=== PATIENT | female | born 1945 | race Caucasian/White ===

== ENCOUNTER → 2016-12-30 | Outpatient (CLI) | payer MEDICARE, OTHER ==
[2016-12-30 12:40] LABS: Urine Bilirubin Negative (Negative); Urine Blood Negative /uL (Negative); Urine Color Yellow (Yellow); Urine Glucose Normal (Normal); Urine Ketone Negative (Negative); Urine Nitrite Negative (Negative); Urine Urobilinogen Normal (Negative); Urine pH 5.5 (5.0-8.0)
[2016-12-30 12:53] LABS: INR 1.02 (0.9-1.15); Partial Thromboplastin Time 28.5 sec (22.64-33.71)
[2016-12-30 12:55] LABS: Basophils # (auto) 0 uL; Basophils % (auto) 0.9 % (0.0-2.0); Eosinophils # (auto) 0.1 uL; Eosinophils % (auto) 3.6 % (0.0-7.0); Hematocrit 46.7 % (36.0-46.0); Hemoglobin 15.4 g/dL (12.2-16.2); Lymphocytes # (auto) 1.3 uL; Lymphocytes % (auto) 37.8 % (10.0-50.0); Mean Corpuscular Hgb Conc. 32.9 g/dL (32.0-36.0); Mean Corpuscular Volume 85.2 fL (80.0-100.0); Mean Platelet Volume 12.3 fL (7.4-10.4); Monocytes # (auto) 0.5 uL; Monocytes % (auto) 12.8 % (0.0-12.0); Neutrophils # (auto) 1.6 uL; Neutrophils % (auto) 44.9 % (37.0-80.0); Platelet Count (auto) 118 10^3/uL (140-450); Red Cell Distribution Width 16.5 % (11.6-16.0); SUSPECT VIEW TRANSMISSION; White Blood Cell 3.6 10^3/uL (4.4-10.8)
[2016-12-30 13:34] LABS: Albumin 3.3 g/dL (3.4-5.0); Bilirubin, Total 0.9 mg/dL (0.2-1.0); Calcium 9.9 mg/dL (8.5-10.1); Potassium 4.1 mmol/L (3.5-5.1); Total Protein 8.1 g/dL (6.4-8.2)
[2016-12-30 14:07] LABS: Bilirubin, Direct 0.5 mg/dL (0-0.2)
== END | disposition home or self-care (01) ==
LOC: LAB 09:19
PROVIDERS: ATTEND Internal Medicine Cardiovascular Disease
DX: I10 Essential (primary) hypertension (principal); E78.00 Pure hypercholesterolemia, unspecified; K74.1 Hepatic sclerosis; E11.9 Type 2 diabetes mellitus without complications; E03.9 Hypothyroidism, unspecified; D64.9 Anemia, unspecified; E55.9 Vitamin D deficiency, unspecified; N39.0 Urinary tract infection, site not specified; K74.60 Unspecified cirrhosis of liver; K75.81 Nonalcoholic steatohepatitis (NASH); E66.1 Drug-induced obesity
CPT/HCPCS: 36415; 80048; 80061; 80076; 81003; 82105; 82306; 83036; 84443; 85025; 85610; 85730

== ENCOUNTER → 2017-08-08 | Outpatient (CLI) | payer MEDICARE, OTHER ==
[~2017-08-08] VITALS: Ht 177.8 cm; Wt 158.8 kg
[~2017-08-08] MED LIST: ADENOSINE 133 MG in GIVE UN-DILUTED 0 ML IV ONE; ADENOSINE 90 MG/30 ML INJ IV ONE
[2017-08-08 13:13] LABS: Urine Bilirubin Negative (Negative); Urine Blood Negative /uL (Negative); Urine Color Yellow (Yellow); Urine Glucose Normal (Normal); Urine Ketone Negative (Negative); Urine Nitrite Negative (Negative); Urine Urobilinogen Normal (Negative); Urine pH 6.5 (5.0-8.0)
[2017-08-08 13:30] LABS: Basophils # (auto) 0 uL; Basophils % (auto) 0.6 % (0.0-2.0); Eosinophils # (auto) 0.1 uL; Eosinophils % (auto) 3.1 % (0.0-7.0); Hematocrit 45.4 % (36.0-46.0); Hemoglobin 14.9 g/dL (12.2-16.2); Lymphocytes # (auto) 1.5 uL; Mean Corpuscular Hemoglobin 28.4 pg (28.0-32.0); Mean Corpuscular Hgb Conc. 32.7 g/dL (32.0-36.0); Mean Corpuscular Volume 86.6 fL (80.0-100.0); Mean Platelet Volume 14.2 fL (6.9-10.8); Monocytes # (auto) 0.6 uL; Monocytes % (auto) 15.5 % (0.0-12.0); Neutrophils # (auto) 1.5 uL; Neutrophils % (auto) 40.8 % (37.0-80.0); Nucleated Red Blood Cells % 0.6 %; Platelet Count (auto) 100 10^3/uL (140-450); Red Cell Distribution Width 15.8 % (11.8-14.3); White Blood Cell 3.7 10^3/uL (4.4-10.8)
[2017-08-08 13:51] LABS: Albumin 3.1 g/dL (3.4-5.0); BUN/Creatinine Ratio 11.1; Bilirubin, Direct 0.5 mg/dL (0-0.2); Bilirubin, Total 1.1 mg/dL (0.2-1.0); Calcium 9.8 mg/dL (8.5-10.1); Potassium 4.2 mmol/L (3.5-5.1); Total Protein 7.5 g/dL (6.4-8.2)
[2017-08-08 14:23] LABS: Platelet Estimate Decreased; RBC Morphology Normal
== END | disposition home or self-care (01) ==
LOC: Rad HDHVI 08:44
PROVIDERS: ATTEND Internal Medicine Cardiovascular Disease
DX: I10 Essential (primary) hypertension (principal); M19.90 Unspecified osteoarthritis, unspecified site; E11.9 Type 2 diabetes mellitus without complications; E78.00 Pure hypercholesterolemia, unspecified; D64.9 Anemia, unspecified; E03.9 Hypothyroidism, unspecified; E55.9 Vitamin D deficiency, unspecified; R63.8 Other symptoms and signs concerning food and fluid intake; K74.1 Hepatic sclerosis; N39.0 Urinary tract infection, site not specified; D51.9 Vitamin B12 deficiency anemia, unspecified
CPT/HCPCS: 36415; 78452; 80048; 80061; 80076; 81003; 82306; 82607; 83036; 84439; 84443; 85025; 93005; 93306; 96374; 96375; A9500; J0153

== ENCOUNTER → 2018-04-07 | Outpatient (CLI) | payer MEDICARE, BC ==
[2018-04-07 16:41] LABS: Basophils # (auto) 0 uL; Basophils % (auto) 0.8 % (0.0-2.0); Eosinophils # (auto) 0.1 uL; Eosinophils % (auto) 2.7 % (0.0-7.0); Hematocrit 45.4 % (36.0-46.0); Hemoglobin 14.6 g/dL (12.2-16.2); Lymphocytes # (auto) 1.4 uL; Lymphocytes % (auto) 36.4 % (10.0-50.0); Mean Corpuscular Hemoglobin 28.4 pg (28.0-32.0); Mean Corpuscular Hgb Conc. 32.2 g/dL (32.0-36.0); Mean Corpuscular Volume 88.1 fL (80.0-100.0); Monocytes # (auto) 0.5 uL; Monocytes % (auto) 14.3 % (0.0-12.0); Neutrophils # (auto) 1.7 uL; Neutrophils % (auto) 45.8 % (37.0-80.0); Nucleated Red Blood Cells % 1.3 %; Red Blood Cells 5.16 10^6/uL (4.0-5.20); Red Cell Distribution Width 15.9 % (11.8-14.3); White Blood Cell 3.8 10^3/uL (4.4-10.8)
[2018-04-07 16:49] LABS: Platelet Count (auto) 105 10^3/uL (140-450)
== END | disposition home or self-care (01) ==
LOC: LAB 11:30
PROVIDERS: ATTEND Internal Medicine Cardiovascular Disease
DX: E11.9 Type 2 diabetes mellitus without complications (principal); D64.9 Anemia, unspecified; E03.9 Hypothyroidism, unspecified; R97.8 Other abnormal tumor markers; Z80.3 Family history of malignant neoplasm of breast
CPT/HCPCS: 36415; 83036; 85025; 86304

== ENCOUNTER → 2018-04-10 | Outpatient (CLI) | payer MEDICARE, OTHER | END | disposition home or self-care (01) | LOC: Rad HDHVI 13:10 | PROVIDERS: ATTEND Internal Medicine Cardiovascular Disease | DX: E87.6 Hypokalemia (principal); R06.00 Dyspnea, unspecified | CPT/HCPCS: 93306 ==

== ENCOUNTER → 2018-05-02 | Outpatient (CLI) | payer MEDICARE, OTHER ==
[~2018-05-02] MED LIST changes: -ADENOSINE 133 MG in GIVE UN-DILUTED 0 ML IV ONE; -ADENOSINE 90 MG/30 ML INJ IV ONE; +IOHEXOL 350 MG/ML 100ML IJ ONE; +READI-CAT 2 (BARIUM SULF)(VANILLA SMOOTHIE) 450ML ONE
[2018-05-02 16:00] VITALS: BP 148/64
[2018-05-02 16:50] VITALS: BP 164/74
== END | disposition home or self-care (01) ==
LOC: Rad HDHVI 15:43
PROVIDERS: ATTEND Internal Medicine Cardiovascular Disease
DX: R10.9 Unspecified abdominal pain (principal); E03.9 Hypothyroidism, unspecified; E11.9 Type 2 diabetes mellitus without complications; I10 Essential (primary) hypertension; E66.9 Obesity, unspecified; R97.0 Elevated carcinoembryonic antigen [CEA]; Z90.49 Acquired absence of other specified parts of digestive tract
CPT/HCPCS: 74177; 82565; G0463; Q9967

== ENCOUNTER → 2019-06-06 | Outpatient (CLI) | payer MEDICARE, OTHER | END | disposition home or self-care (01) | LOC: Rad HDHVI 13:07 | PROVIDERS: ATTEND Internal Medicine Cardiovascular Disease | DX: R42 Dizziness and giddiness (principal); R07.89 Other chest pain; I11.0 Hypertensive heart disease with heart failure; I50.33 Acute on chronic diastolic (congestive) heart failure | CPT/HCPCS: 93306 ==

== ENCOUNTER → 2020-10-29 | Outpatient (CLI) | payer MEDICARE, BC ==
[~2020-10-29] MED LIST changes: +ASPI-543 PO; +FURO40TA4 PO; +IBUP800T27 PO; -IOHEXOL 350 MG/ML 100ML IJ ONE; +OLME20TA53 PO; +POTA-220 PO; -READI-CAT 2 (BARIUM SULF)(VANILLA SMOOTHIE) 450ML ONE; +SIME1CAP17 PO
== END | disposition home or self-care (01) ==
LOC: LAB 11:55
PROVIDERS: ATTEND Internal Medicine Cardiovascular Disease
DX: C56.9 Malignant neoplasm of unspecified ovary (principal); R94.4 Abnormal results of kidney function studies; R97.0 Elevated carcinoembryonic antigen [CEA]; Z12.39 Encounter for other screening for malignant neoplasm of breast
CPT/HCPCS: 36415; 82378; 82565; 86304

== ENCOUNTER 2020-10-31 16:30 | Inpatient (IN) | payer MEDICARE, BC ==
[~2020-10-31] VITALS: Ht 177.8 cm; Wt 147.4 kg
[2020-10-31 17:07] LABS: Hematocrit 37.9 % (36.0-46.0); Hemoglobin 12.6 g/dL (12.2-16.2); Mean Corpuscular Hemoglobin 28.9 pg (28.0-32.0); Mean Corpuscular Hgb Conc. 33.1 g/dL (32.0-36.0); Mean Corpuscular Volume 87.2 fL (80.0-100.0); Platelet Count (auto) 116 10^3/uL (140-450); Red Blood Cells 4.35 10^6/uL (4.0-5.20); Red Cell Distribution Width 16.4 % (11.8-14.3); White Blood Cell 3.7 10^3/uL (4.4-10.8)
[2020-10-31 17:16] LABS: Basophils % (manual) 0 (0.0-2.0); Blast Cells 0; Metamyelocytes % 0; Myelocytes % 0; Promyelocytes % 0
[2020-10-31 17:24] LABS: Calcium 9.4 mg/dL (8.5-10.1); Potassium 3.9 mmol/L (3.5-5.1)
[2020-10-31 17:29] LABS: Bilirubin, Total 0.9 mg/dL (0.2-1.0); Total Protein 7.6 g/dL (6.4-8.2)
[2020-10-31 17:34] LABS: Band Neutrophils % (manual) 4; Eosinophils % (manual) 1 (0-7); Lymphocytes % (manual) 37 (10.0-50.0); Monocytes % (manual) 14 (0-12); Reactive Lymphocytes 1
[2020-10-31] MEDS ORDERED: cefTRIAXone 1GM/50ML D5W 50 ML IV ONE (19:30)
[2020-10-31] MEDS ORDERED: SODIUM CHLORIDE 0.9% 1,000 ML IV ONE (19:30)
[2020-10-31 19:55] LABS: INR 1.06 (0.9-1.15); Partial Thromboplastin Time 23.5 sec (23.0-31.2)
[2020-10-31] MEDS ORDERED: NITROGLYCERIN 0.4 MG SL TAB SL PRN (22:00)
[2020-10-31] MEDS ORDERED: ONDANSETRON HCL 4 MG/2 ML VIAL IV PRN (22:15)
[2020-10-31] MEDS ORDERED: LORazepam 2MG/ML-1ML VIAL IV PRN (22:15)
[2020-10-31 22:18] LABS: Urine Bacteria FEW /hpf (None Seen); Urine Blood 3+ /uL (Negative); Urine Specific Gravity 1.023 (1.001-1.035); Urine WBC 3 /hpf (0 - 5)
[2020-10-31] MEDS: SODIUM CHLORIDE 0.9% 1,000 ML IV SCH (22:29)
[2020-10-31] MEDS ORDERED: KETOROLAC TROMETH 60MG/2ML VIAL IM PRN (22:45)
[2020-11-01 08:37] VITALS: BP 132/72
[2020-11-01 08:47] LABS: Basophils # (auto) 0.1 10 ^3/uL (0-0.2); Basophils % (auto) 1.5 % (0.0-2.0); Eosinophils # (auto) 0.1 10 ^3/uL (0-0.8); Eosinophils % (auto) 3.7 % (0.0-7.0); Hematocrit 38.3 % (36.0-46.0); Hemoglobin 12.7 g/dL (12.2-16.2); Lymphocytes # (auto) 1.3 10 ^3/uL (0.4-5.4); Lymphocytes % (auto) 34.6 % (10.0-50.0); Mean Corpuscular Hemoglobin 28.9 pg (28.0-32.0); Mean Corpuscular Volume 87.4 fL (80.0-100.0); Monocytes # (auto) 0.6 10 ^3/uL (0-1.3); Monocytes % (auto) 15.7 % (0.0-12.0); Neutrophils # (auto) 1.6 10 ^3/uL (1.6-8.6); Neutrophils % (auto) 44.5 % (37.0-80.0); Nucleated Red Blood Cells % 0.1 %; Platelet Count (auto) 120 10^3/uL (140-450); Red Blood Cells 4.38 10^6/uL (4.0-5.20); Red Cell Distribution Width 16.3 % (11.8-14.3); White Blood Cell 3.7 10^3/uL (4.4-10.8)
[2020-11-01 09:03] LABS: Albumin 3.2 g/dL (3.4-5.0); BUN/Creatinine Ratio 13.2; Calcium 9.7 mg/dL (8.5-10.1)
[2020-11-01 09:06] LABS: Bilirubin, Total 1.5 mg/dL (0.2-1.0); Total Protein 7.6 g/dL (6.4-8.2)
[2020-11-01] MEDS: ENOXAPARIN SOD 40 MG/0.4 ML SYRINGE SC SCH (09:39)
[2020-11-01] MEDS: PANTOPRAZOLE 40 MG/10 ML VIAL INJ IV SCH (09:39)
[2020-11-01] MEDS ORDERED: GASTROGRAFIN 120 ML SOL ONE (12:11)
[2020-11-01 12:30] VITALS: BP 126/66
[2020-11-01 16:58] VITALS: BP 141/76
[2020-11-01] MEDS: SODIUM CHLORIDE 0.9% 1,000 ML IV SCH ×2 (18:18→23:36)
[2020-11-01] MEDS ORDERED: levoFLOXacin 500MG 100 ML IV ONE (20:15)
[2020-11-01 22:00] VITALS: BP 141/61
[2020-11-01] MEDS ORDERED: PIPERACILLIN-TAZO 4.5GM 100 ML IV SCH (22:00)
[2020-11-01] MEDS: VANCOMYCIN HCL 125MG/5ML ORAL SOL PO SCH (23:36)
[2020-11-02 05:00] VITALS: BP 119/71
[2020-11-02] MEDS: VANCOMYCIN HCL 125MG/5ML ORAL SOL PO SCH ×3 (06:21→18:06)
[2020-11-02 07:11] LABS: Basophils # (auto) 0 10 ^3/uL (0-0.2); Basophils % (auto) 0.8 % (0.0-2.0); Eosinophils # (auto) 0.1 10 ^3/uL (0-0.8); Eosinophils % (auto) 3.8 % (0.0-7.0); Hemoglobin 12.9 g/dL (12.2-16.2); Lymphocytes % (auto) 33.1 % (10.0-50.0); Mean Corpuscular Hemoglobin 29.3 pg (28.0-32.0); Mean Corpuscular Volume 88.6 fL (80.0-100.0); Monocytes # (auto) 0.4 10 ^3/uL (0-1.3); Monocytes % (auto) 11.8 % (0.0-12.0); Neutrophils # (auto) 1.5 10 ^3/uL (1.6-8.6); Neutrophils % (auto) 50.5 % (37.0-80.0); Platelet Count (auto) 115 10^3/uL (140-450); Red Cell Distribution Width 16.8 % (11.8-14.3)
[2020-11-02 07:27] LABS: Albumin 3.1 g/dL (3.4-5.0); Calcium 9.5 mg/dL (8.5-10.1); Magnesium 2.2 mg/dL (1.6-2.6); Potassium 4.1 mmol/L (3.5-5.1)
[2020-11-02 07:30] LABS: BUN/Creatinine Ratio 15.3; Bilirubin, Total 1.4 mg/dL (0.2-1.0); Total Protein 7.8 g/dL (6.4-8.2)
[2020-11-02 08:00] VITALS: BP 165/75
[2020-11-02 09:00] VITALS: BP 165/75
[2020-11-02] MEDS: levoFLOXacin 500MG 100 ML IV SCH (09:24)
[2020-11-02] MEDS: PANTOPRAZOLE 40 MG/10 ML VIAL INJ IV SCH (09:24)
[2020-11-02] MEDS: ENOXAPARIN SOD 40 MG/0.4 ML SYRINGE SC SCH (09:25)
[2020-11-02] MEDS: hydrALAZINE HCL 20 MG/ML VL IV PRN (12:22)
[2020-11-02] MEDS ORDERED: IBUP800T27 PO (12:47)
[2020-11-02] MEDS ORDERED: POTA-220 PO (12:58)
[2020-11-02] MEDS ORDERED: OLME20TA53 PO (12:58)
[2020-11-02] MEDS ORDERED: FURO40TA4 PO (12:58)
[2020-11-02] MEDS ORDERED: SIME1CAP17 PO (12:58)
[2020-11-02] MEDS ORDERED: ASPI-543 PO (12:58)
[2020-11-02 13:00] VITALS: BP 170/81
[2020-11-02] MEDS: SODIUM CHLORIDE 0.9% 1,000 ML IV SCH (14:15)
[2020-11-02 17:00] VITALS: BP 158/66
[2020-11-02] MEDS: metroNIDAZOLE 500 MG TAB PO SCH (21:18)
[2020-11-02 22:00] VITALS: BP 147/71
[2020-11-03] MEDS: SODIUM CHLORIDE 0.9% 1,000 ML IV SCH ×2 (03:08→16:55)
[2020-11-03 05:30] VITALS: BP 136/83
[2020-11-03] MEDS: metroNIDAZOLE 500 MG TAB PO SCH ×3 (06:11→21:31)
[2020-11-03 08:00] VITALS: BP 134/55
[2020-11-03] MEDS: ENOXAPARIN SOD 40 MG/0.4 ML SYRINGE SC SCH (10:20)
[2020-11-03] MEDS: levoFLOXacin 500MG 100 ML IV SCH (10:20)
[2020-11-03] MEDS: PANTOPRAZOLE 40 MG/10 ML VIAL INJ IV SCH (10:20)
[2020-11-03] MEDS: OLMESARTAN 20 MG PO SCH (10:35)
[2020-11-03 11:17] LABS: Hepatitis B Surface Antibody Negative
[2020-11-03 11:47] LABS: Hepatitis A Total Antibody Positive
[2020-11-03 12:00] VITALS: BP 160/77
[2020-11-03] MEDS: hydrALAZINE HCL 20 MG/ML VL IV PRN (12:57)
[2020-11-03 13:12] LABS: Hepatitis B Core Total AB Negative; Hepatitis B Surface Antigen Negative (Negative)
[2020-11-03 13:13] LABS: Hepatitis C Antibody Negative (Negative)
[2020-11-03 16:00] VITALS: BP 145/73
[2020-11-03 21:47] VITALS: BP 152/81
[2020-11-04] MEDS: metroNIDAZOLE 500 MG TAB PO SCH ×2 (05:36→14:28)
[2020-11-04] MEDS: SODIUM CHLORIDE 0.9% 1,000 ML IV SCH (06:03)
[2020-11-04 09:00] VITALS: BP 152/73
[2020-11-04] MEDS: ENOXAPARIN SOD 40 MG/0.4 ML SYRINGE SC SCH (10:18)
[2020-11-04] MEDS: OLMESARTAN 20 MG PO SCH (10:18)
[2020-11-04] MEDS: PANTOPRAZOLE 40 MG/10 ML VIAL INJ IV SCH (10:19)
[2020-11-04] MEDS: levoFLOXacin 500MG 100 ML IV SCH (10:19)
[2020-11-04 13:00] VITALS: BP 147/63
[2020-11-04 16:29] VITALS: BP 138/54
[2020-11-04 17:59] VITALS: BP 138/54
== END 2020-11-04 19:59 | disposition home or self-care (01) | DRG 393 ==
LOC: ER 16:30 → TELE 21:50 → TELE-WESTW 11-01 06:12
PROVIDERS: ADMIT Family Medicine; ATTEND Internal Medicine
DX: K66.8 Other specified disorders of peritoneum (principal); K26.5 Chronic or unspecified duodenal ulcer with perforation; K25.5 Chronic or unspecified gastric ulcer with perforation; Z68.42 Body mass index [BMI] 45.0-49.9, adult; N83.202 Unspecified ovarian cyst, left side; K74.60 Unspecified cirrhosis of liver; D69.6 Thrombocytopenia, unspecified; I10 Essential (primary) hypertension; Z20.822 Contact with and (suspected) exposure to COVID-19; E03.9 Hypothyroidism, unspecified; D25.9 Leiomyoma of uterus, unspecified; E66.01 Morbid (severe) obesity due to excess calories; Z53.20 Procedure and treatment not carried out because of patient's decision for unspecified reasons; N83.201 Unspecified ovarian cyst, right side; M19.90 Unspecified osteoarthritis, unspecified site; Z85.43 Personal history of malignant neoplasm of ovary; Z90.49 Acquired absence of other specified parts of digestive tract; Z88.5 Allergy status to narcotic agent; Z88.0 Allergy status to penicillin; Z91.010 Allergy to peanuts; Z88.8 Allergy status to other drugs, medicaments and biological substances; Z88.1 Allergy status to other antibiotic agents
CPT/HCPCS: 36415; 71045; 74018; 74176; 74177; 74250; 80053; 81001; 82378; 82565; 83605; 83690; 83735; 83880; 84100; 84443; 85007; 85025; 85027; 85610; 85730; 86304; 86704; 86706; 86708; 86803; 87340; 87426; 87493; 93005; 96365; 96372; 96374; C9113; G0378; G0463; J0696; J1885; J1956; J2405

== ENCOUNTER → 2020-11-21 | Outpatient (CLI) | payer MEDICARE, BC | END | disposition home or self-care (01) | LOC: Rad HDHVI 13:40 | PROVIDERS: ATTEND Internal Medicine Cardiovascular Disease | DX: I50.33 Acute on chronic diastolic (congestive) heart failure (principal); I51.7 Cardiomegaly | CPT/HCPCS: 93306 ==

== ENCOUNTER 2021-04-13 23:09 | Inpatient (IN) | payer MEDICARE, BC ==
[~2021-04-13] VITALS: Ht 177.8 cm; Wt 155.7 kg
[2021-04-14 01:22] LABS: Hematocrit 40.7 % (36.0-46.0); Hemoglobin 13.8 g/dL (12.2-16.2); Mean Corpuscular Hemoglobin 29.5 pg (28.0-32.0); Mean Corpuscular Volume 86.9 fL (80.0-100.0); Red Blood Cells 4.69 10^6/uL (4.0-5.20); White Blood Cell 4.9 10^3/uL (4.4-10.8)
[2021-04-14 01:23] LABS: INR 1.08 (0.9-1.15)
[2021-04-14 01:24] LABS: Basophils % (manual) 0 (0.0-2.0); Blast Cells 0; Metamyelocytes % 0; Myelocytes % 0; Promyelocytes % 0; Reactive Lymphocytes 0
[2021-04-14 01:25] LABS: Albumin 2.9 g/dL (3.4-5.0); Anion Gap 4 (5-15); Blood Urea Nitrogen 15 mg/dL (7-18); Calcium 9.5 mg/dL (8.5-10.1); Carbon Dioxide 28 mmol/L (21-32); Chloride 107 mmol/L (98-107); Glucose 124 mg/dL (74-106); Lipase 168 U/L (73-393); Magnesium 2.2 mg/dL (1.6-2.6); Potassium 4.1 mmol/L (3.5-5.1); Sodium 139 mmol/L (136-145)
[2021-04-14 01:27] LABS: Alanine Aminotransferase 68 U/L (13-56); Aspartate Aminotransferase 76 U/L (15-37); GFR African American 70 mL/min; GFR Non-African American 58 mL/min
[2021-04-14 01:32] LABS: Alkaline Phosphatase 557 U/L (45-117); Total Protein 8.2 g/dL (6.4-8.2)
[2021-04-14] MEDS ORDERED: IOHEXOL 300 MG/ML 100ML BOTTLE IJ ONE (01:59)
[2021-04-14 02:03] LABS: Band Neutrophils % (manual) 7; Eosinophils % (manual) 2 (0-7); Lymphocytes % (manual) 20 (10.0-50.0); Monocytes % (manual) 8 (0-12)
[2021-04-14 02:59] LABS: Urine Bacteria NONE SEEN /hpf (None Seen); Urine Blood Negative /uL (Negative); Urine Hyaline Cast FEW /lpf (0 - 2); Urine Mucus FEW (None Seen); Urine Specific Gravity 1.031 (1.001-1.035); Urine WBC 2 /hpf (0 - 5)
[2021-04-14] MEDS ORDERED: ONDANSETRON HCL 4 MG/2 ML VIAL IV ONE ×2 (03:00→03:30)
[2021-04-14] MEDS ORDERED: fentaNYL CITRATE 100 MCG/2 ML VL IV ONE ×2 (03:30→06:15)
[2021-04-14] MEDS ORDERED: metroNIDAZOLE 500MG/100ML 100 ML IV ONE (06:15)
[2021-04-14] MEDS ORDERED: CIPROFLOXACIN 400MG/200ML 200 ML IV ONE (06:15)
[2021-04-14] MEDS ORDERED: SODIUM CHLORIDE 0.9% 1,000 ML IV ONE (06:15)
[2021-04-14] MEDS ORDERED: SOD CHL 0.45% 1,000 ML IV SCH (07:30)
[2021-04-14] MEDS ORDERED: ACETAMINOPHEN 325 MG TAB PO PRN (07:30)
[2021-04-14] MEDS ORDERED: SODIUM CHLORIDE 0.9% 1,000 ML IV SCH (07:30)
[2021-04-14] MEDS ORDERED: NITROGLYCERIN 0.4 MG SL TAB SL PRN (07:30)
[2021-04-14 08:10] LABS: Basophils # (auto) 0 10 ^3/uL (0-0.2); Basophils % (auto) 0.5 % (0.0-2.0); Eosinophils # (auto) 0 10 ^3/uL (0-0.8); Hematocrit 41.7 % (36.0-46.0); Hemoglobin 13.9 g/dL (12.2-16.2); Lymphocytes # (auto) 0.6 10 ^3/uL (0.4-5.4); Lymphocytes % (auto) 11.9 % (10.0-50.0); Mean Corpuscular Hemoglobin 28.6 pg (28.0-32.0); Mean Corpuscular Hgb Conc. 33.3 g/dL (32.0-36.0); Mean Corpuscular Volume 85.9 fL (80.0-100.0); Monocytes # (auto) 0.3 10 ^3/uL (0-1.3); Monocytes % (auto) 5.9 % (0.0-12.0); Neutrophils # (auto) 4.2 10 ^3/uL (1.6-8.6); Neutrophils % (auto) 81.7 % (37.0-80.0); Red Blood Cells 4.85 10^6/uL (4.0-5.20); Red Cell Distribution Width 15.9 % (11.8-14.3); White Blood Cell 5.1 10^3/uL (4.4-10.8)
[2021-04-14 08:14] LABS: Albumin 2.8 g/dL (3.4-5.0); Calcium 9.3 mg/dL (8.5-10.1); Potassium 4.6 mmol/L (3.5-5.1)
[2021-04-14 08:18] LABS: BUN/Creatinine Ratio 18.1; Total Protein 7.8 g/dL (6.4-8.2)
[2021-04-14] MEDS: FAMOTIDINE (10MG/ML) 2ML VL IV SCH ×2 (10:15→21:34)
[2021-04-14] MEDS ORDERED: LIDOCAINE 2%HCL (LOCAL ANESTH.) INJ 20ML MDV ONE (10:38)
[2021-04-14] MEDS ORDERED: MIDAZOLAM HCL 2MG/2ML 2ml VIAL (1mg/ml) ONE (10:58)
[2021-04-14] MEDS ORDERED: fentaNYL CITRATE 100 MCG/2 ML VL ONE (10:58)
[2021-04-14] MEDS ORDERED: ONDANSETRON HCL 4 MG/2 ML VIAL ONE (11:34)
[2021-04-14 13:00] VITALS: BP 163/83
[2021-04-14] MEDS: HYDROmorphone HCL 2 MG/ML VL IV PRN ×2 (13:52→23:43)
[2021-04-14] MEDS: hydrALAZINE HCL 20 MG/ML VL IV PRN (13:53)
[2021-04-14] MEDS ORDERED: metroNIDAZOLE 500MG/100ML 100 ML IV SCH (14:00)
[2021-04-14] MEDS ORDERED: CLINDAMYCIN 600MG IV 50 ML IV ONE (15:15)
[2021-04-14] MEDS ORDERED: MEROPENEM 1GM IVPB 100 ML IV ONE (15:15)
[2021-04-14] MEDS: ONDANSETRON HCL 4 MG/2 ML VIAL IV PRN ×2 (16:05→18:05)
[2021-04-14] MEDS: LACTATED RINGER'S 1,000 ML IV SCH (16:33)
[2021-04-14 16:39] VITALS: BP 160/79
[2021-04-14] MEDS: LABETALOL HCL 200 MG TAB PO SCH (21:30)
[2021-04-14] MEDS: MEROPENEM 1GM IVPB 100 ML IV SCH (21:33)
[2021-04-14] MEDS: CLINDAMYCIN 600MG IV 50 ML IV SCH (21:33)
[2021-04-14 22:00] VITALS: BP 147/71
[2021-04-15] MEDS: ONDANSETRON HCL 4 MG/2 ML VIAL IV PRN ×3 (00:03→14:20)
[2021-04-15] MEDS: LACTATED RINGER'S 1,000 ML IV SCH ×2 (04:35→18:19)
[2021-04-15] MEDS: CLINDAMYCIN 600MG IV 50 ML IV SCH ×3 (05:00→21:42)
[2021-04-15 05:55] VITALS: BP 106/49
[2021-04-15] MEDS: MEROPENEM 1GM IVPB 100 ML IV SCH (06:30)
[2021-04-15 07:59] LABS: Basophils # (auto) 0 10 ^3/uL (0-0.2); Basophils % (auto) 0.4 % (0.0-2.0); Eosinophils # (auto) 0 10 ^3/uL (0-0.8); Eosinophils % (auto) 0.3 % (0.0-7.0); Hematocrit 36.7 % (36.0-46.0); Hemoglobin 12.3 g/dL (12.2-16.2); Lymphocytes # (auto) 0.7 10 ^3/uL (0.4-5.4); Lymphocytes % (auto) 12.2 % (10.0-50.0); Mean Corpuscular Hemoglobin 28.9 pg (28.0-32.0); Mean Corpuscular Hgb Conc. 33.6 g/dL (32.0-36.0); Mean Corpuscular Volume 86.1 fL (80.0-100.0); Monocytes # (auto) 0.7 10 ^3/uL (0-1.3); Monocytes % (auto) 11.1 % (0.0-12.0); Neutrophils # (auto) 4.5 10 ^3/uL (1.6-8.6); Red Blood Cells 4.26 10^6/uL (4.0-5.20); Red Cell Distribution Width 15.9 % (11.8-14.3); White Blood Cell 5.9 10^3/uL (4.4-10.8)
[2021-04-15 08:11] LABS: INR 1.1 (0.9-1.15); Partial Thromboplastin Time 25.6 sec (23.6-33.0)
[2021-04-15 08:13] LABS: Chloride 110 mmol/L (98-107); Potassium 4.5 mmol/L (3.5-5.1); Sodium 139 mmol/L (136-145)
[2021-04-15 08:19] LABS: Alanine Aminotransferase 51 U/L (13-56); Albumin 2.5 g/dL (3.4-5.0); Alkaline Phosphatase 396 U/L (45-117); Anion Gap 4 (5-15); Aspartate Aminotransferase 47 U/L (15-37); BUN/Creatinine Ratio 16.4; Bilirubin, Total 1.3 mg/dL (0.2-1.0); Blood Urea Nitrogen 19 mg/dL (7-18); Carbon Dioxide 25 mmol/L (21-32); Cholesterol 161 mg/dL (< 200); GFR African American 59 mL/min; GFR Non-African American 49 mL/min; Glucose 96 mg/dL (74-106); HDL Cholesterol 67 mg/dL (40-59); LDL Cholesterol 83 mg/dL (< 100); Magnesium 2.3 mg/dL (1.6-2.6); Phosphorus 3.9 mg/dL (2.5-4.90); Total Protein 7.3 g/dL (6.4-8.2); Triglycerides 50 mg/dL (< 150)
[2021-04-15] MEDS: LABETALOL HCL 200 MG TAB PO SCH ×2 (08:20→21:42)
[2021-04-15] MEDS: FAMOTIDINE (10MG/ML) 2ML VL IV SCH (08:20)
[2021-04-15 08:24] LABS: Thyroid Stimulating Hormone 1.2 uIU/mL (0.358-3.74)
[2021-04-15 09:00] VITALS: BP 111/57
[2021-04-15] MEDS: HYDROmorphone HCL 2 MG/ML VL IV PRN ×2 (10:00→21:09)
[2021-04-15 13:00] VITALS: BP 142/76
[2021-04-15] MEDS ORDERED: PANTOPRAZOLE 40 MG/10 ML VIAL INJ IV ONE (14:15)
[2021-04-15] MEDS ORDERED: GASTROGRAFIN 120 ML SOL ONE (14:41)
[2021-04-15] MEDS: PROMETHAZINE HCL 25 MG/ML 1ML IV PRN (16:00)
[2021-04-15 16:30] VITALS: BP 141/79
[2021-04-15 22:00] VITALS: BP 166/90
[2021-04-15] MEDS: hydrALAZINE HCL 20 MG/ML VL IV PRN (23:01)
[2021-04-16] MEDS: HYDROmorphone HCL 2 MG/ML VL IV PRN (01:36)
[2021-04-16 05:33] VITALS: BP 158/85
[2021-04-16] MEDS: PROMETHAZINE HCL 25 MG/ML 1ML IV PRN (05:50)
[2021-04-16 06:28] LABS: Basophils # (auto) 0 10 ^3/uL (0-0.2); Basophils % (auto) 0.4 % (0.0-2.0); Eosinophils # (auto) 0.1 10 ^3/uL (0-0.8); Eosinophils % (auto) 0.9 % (0.0-7.0); Hematocrit 39.6 % (36.0-46.0); Hemoglobin 13.3 g/dL (12.2-16.2); Lymphocytes # (auto) 0.8 10 ^3/uL (0.4-5.4); Lymphocytes % (auto) 10.2 % (10.0-50.0); Mean Corpuscular Hemoglobin 29.2 pg (28.0-32.0); Mean Corpuscular Hgb Conc. 33.7 g/dL (32.0-36.0); Mean Corpuscular Volume 86.4 fL (80.0-100.0); Monocytes # (auto) 0.4 10 ^3/uL (0-1.3); Monocytes % (auto) 5.5 % (0.0-12.0); Neutrophils # (auto) 6.6 10 ^3/uL (1.6-8.6); Nucleated Red Blood Cells % 0.1 %; Red Blood Cells 4.58 10^6/uL (4.0-5.20); Red Cell Distribution Width 16.3 % (11.8-14.3)
[2021-04-16 06:38] LABS: BUN/Creatinine Ratio 23.9; Calcium 9.7 mg/dL (8.5-10.1); Potassium 4.5 mmol/L (3.5-5.1)
[2021-04-16] MEDS: CLINDAMYCIN 600MG IV 50 ML IV SCH ×3 (06:49→22:07)
[2021-04-16] MEDS: PANTOPRAZOLE 40 MG/10 ML VIAL INJ IV SCH (08:27)
[2021-04-16] MEDS: cefTRIAXone 1GM/50ML D5W 50 ML IV SCH (08:27)
[2021-04-16 09:00] VITALS: BP 113/76
[2021-04-16] MEDS ORDERED: IPRATROPIUM BROM 0.5 MG/2.5ML INH SOL NEB STA (09:22)
[2021-04-16] MEDS: LABETALOL HCL 200 MG TAB PO SCH ×2 (09:30→22:00)
[2021-04-16] MEDS ORDERED: METOCLOPRAMIDE HCL 5MG/ml INJ 2ml VIAL IV ONE (10:30)
[2021-04-16] MEDS: LACTATED RINGER'S 1,000 ML IV SCH ×2 (10:30→22:07)
[2021-04-16] MEDS ORDERED: LORazepam 2MG/ML-1ML VIAL IV PRN (10:45)
[2021-04-16] MEDS ORDERED: IPRATROPIUM BROM 0.5 MG/2.5ML INH SOL NEB PRN ×2 (10:45→11:45)
[2021-04-16] MEDS ORDERED: ALBUTEROL SULF 2.5 MG/0.5ML(0.5%) NEB SOLN NEB PRN (10:45)
[2021-04-16] MEDS ORDERED: methylPREDNISolone SOD SUCC 125 MG/2 ML VL IV ONE (11:45)
[2021-04-16 12:00] VITALS: BP 159/72
[2021-04-16] MEDS ORDERED: methylPREDNISolone SOD SUCC 40 MG/ML VL IV SCH (12:11)
[2021-04-16 12:55] LABS: Hepatitis B Surface Antigen Negative (Negative); Hepatitis C Antibody Negative (Negative)
[2021-04-16] MEDS ORDERED: FUROSEMIDE 20 MG/2 ML VIAL IV ONE (15:00)
[2021-04-16 17:00] VITALS: BP 150/74
[2021-04-16] MEDS ORDERED: IPRATROPIUM BROM 0.5 MG/2.5ML INH SOL NEB SCH (18:00)
[2021-04-16] MEDS: hydrALAZINE HCL 20 MG/ML VL IV PRN (18:02)
[2021-04-16 22:00] VITALS: BP 119/52
[2021-04-16] MEDS: methylPREDNISolone SOD SUCC 40 MG/ML VL IV SCH (22:07)
[2021-04-17 05:00] VITALS: BP 130/59
[2021-04-17] MEDS: LACTATED RINGER'S 1,000 ML IV SCH ×2 (06:04→13:15)
[2021-04-17] MEDS: CLINDAMYCIN 600MG IV 50 ML IV SCH ×3 (06:04→22:02)
[2021-04-17 09:00] VITALS: BP_SYST 105; BP_SYST 108; BP_DIAS 47; BP_DIAS 57
[2021-04-17] MEDS: methylPREDNISolone SOD SUCC 40 MG/ML VL IV SCH (09:40)
[2021-04-17] MEDS: PANTOPRAZOLE 40 MG/10 ML VIAL INJ IV SCH (09:40)
[2021-04-17] MEDS: cefTRIAXone 1GM/50ML D5W 50 ML IV SCH (09:40)
[2021-04-17] MEDS: LABETALOL HCL 200 MG TAB PO SCH ×2 (10:00→22:00)
[2021-04-17 12:48] VITALS: BP 154/79
[2021-04-17] MEDS ORDERED: FUROSEMIDE 20 MG/2 ML VIAL IV ONE (13:15)
[2021-04-17] MEDS: hydrALAZINE HCL 20 MG/ML VL IV PRN ×2 (13:51→22:09)
[2021-04-17 15:57] VITALS: BP 154/74
[2021-04-17 22:00] VITALS: BP 161/81
[2021-04-18 05:00] VITALS: BP 128/66
[2021-04-18] MEDS: LACTATED RINGER'S 1,000 ML IV SCH ×2 (05:47→22:03)
[2021-04-18] MEDS: CLINDAMYCIN 600MG IV 50 ML IV SCH ×3 (05:47→22:02)
[2021-04-18 05:59] LABS: Basophils # (auto) 0.1 10 ^3/uL (0-0.2); Basophils % (auto) 0.5 % (0.0-2.0); Eosinophils # (auto) 0 10 ^3/uL (0-0.8); Hematocrit 37.7 % (36.0-46.0); Hemoglobin 12.6 g/dL (12.2-16.2); Lymphocytes % (auto) 8.5 % (10.0-50.0); Mean Corpuscular Hemoglobin 28.9 pg (28.0-32.0); Mean Corpuscular Hgb Conc. 33.4 g/dL (32.0-36.0); Mean Corpuscular Volume 86.3 fL (80.0-100.0); Neutrophils # (auto) 9.2 10 ^3/uL (1.6-8.6); Red Blood Cells 4.37 10^6/uL (4.0-5.20); Red Cell Distribution Width 15.9 % (11.8-14.3); White Blood Cell 11.2 10^3/uL (4.4-10.8)
[2021-04-18 06:24] LABS: Potassium 4.2 mmol/L (3.5-5.1)
[2021-04-18 06:34] LABS: Albumin 2.6 g/dL (3.4-5.0); BUN/Creatinine Ratio 30.6; Bilirubin, Total 1.1 mg/dL (0.2-1.0); Calcium 9.6 mg/dL (8.5-10.1); Total Protein 7.3 g/dL (6.4-8.2)
[2021-04-18 09:00] VITALS: BP 105/60
[2021-04-18] MEDS: LABETALOL HCL 200 MG TAB PO SCH ×2 (09:36→22:00)
[2021-04-18] MEDS: PANTOPRAZOLE 40 MG/10 ML VIAL INJ IV SCH (09:37)
[2021-04-18] MEDS: methylPREDNISolone SOD SUCC 40 MG/ML VL IV SCH (09:37)
[2021-04-18] MEDS: cefTRIAXone 1GM/50ML D5W 50 ML IV SCH (09:37)
[2021-04-18 13:00] VITALS: BP 136/56
[2021-04-18 17:00] VITALS: BP 140/67
[2021-04-18 22:00] VITALS: BP 153/88
[2021-04-18] MEDS: hydrALAZINE HCL 20 MG/ML VL IV PRN (22:17)
[2021-04-19 05:00] VITALS: BP 101/62
[2021-04-19] MEDS: CLINDAMYCIN 600MG IV 50 ML IV SCH ×3 (05:55→21:32)
[2021-04-19 06:25] LABS: Basophils # (auto) 0 10 ^3/uL (0-0.2); Basophils % (auto) 0.4 % (0.0-2.0); Eosinophils # (auto) 0 10 ^3/uL (0-0.8); Eosinophils % (auto) 0.1 % (0.0-7.0); Hematocrit 39.2 % (36.0-46.0); Hemoglobin 13.3 g/dL (12.2-16.2); Lymphocytes # (auto) 1.3 10 ^3/uL (0.4-5.4); Lymphocytes % (auto) 16.2 % (10.0-50.0); Mean Corpuscular Hemoglobin 29.4 pg (28.0-32.0); Mean Corpuscular Volume 86.7 fL (80.0-100.0); Monocytes # (auto) 0.8 10 ^3/uL (0-1.3); Monocytes % (auto) 10.4 % (0.0-12.0); Neutrophils # (auto) 5.9 10 ^3/uL (1.6-8.6); Neutrophils % (auto) 72.9 % (37.0-80.0); Nucleated Red Blood Cells % 0.1 %; Red Blood Cells 4.52 10^6/uL (4.0-5.20); Red Cell Distribution Width 16.2 % (11.8-14.3); White Blood Cell 8.1 10^3/uL (4.4-10.8)
[2021-04-19 06:43] LABS: Albumin 2.7 g/dL (3.4-5.0); BUN/Creatinine Ratio 32.2; Calcium 9.3 mg/dL (8.5-10.1); Potassium 4.5 mmol/L (3.5-5.1)
[2021-04-19 06:46] LABS: Bilirubin, Total 1.4 mg/dL (0.2-1.0); Total Protein 7.2 g/dL (6.4-8.2)
[2021-04-19] MEDS: PROMETHAZINE HCL 25 MG/ML 1ML IV PRN ×2 (06:57→17:44)
[2021-04-19 09:00] VITALS: BP 152/71
[2021-04-19] MEDS: PANTOPRAZOLE 40 MG/10 ML VIAL INJ IV SCH (09:49)
[2021-04-19] MEDS: methylPREDNISolone SOD SUCC 40 MG/ML VL IV SCH (09:49)
[2021-04-19] MEDS: LABETALOL HCL 200 MG TAB PO SCH ×2 (09:49→21:33)
[2021-04-19] MEDS: cefTRIAXone 1GM/50ML D5W 50 ML IV SCH (09:49)
[2021-04-19 10:30] VITALS: BP 126/73
[2021-04-19 13:02] VITALS: BP 123/73
[2021-04-19] MEDS: LACTATED RINGER'S 1,000 ML IV SCH (15:21)
[2021-04-19 16:46] VITALS: BP 158/70
[2021-04-19 22:00] VITALS: BP 133/64
[2021-04-20] MEDS: PROMETHAZINE HCL 25 MG/ML 1ML IV PRN (03:38)
[2021-04-20 05:28] VITALS: BP 159/69
[2021-04-20 06:07] LABS: Basophils # (auto) 0 10 ^3/uL (0-0.2); Basophils % (auto) 0.3 % (0.0-2.0); Eosinophils # (auto) 0 10 ^3/uL (0-0.8); Eosinophils % (auto) 0.2 % (0.0-7.0); Hematocrit 40.7 % (36.0-46.0); Hemoglobin 13.6 g/dL (12.2-16.2); Lymphocytes % (auto) 17.5 % (10.0-50.0); Mean Corpuscular Hemoglobin 28.9 pg (28.0-32.0); Mean Corpuscular Hgb Conc. 33.4 g/dL (32.0-36.0); Mean Corpuscular Volume 86.5 fL (80.0-100.0); Monocytes # (auto) 0.8 10 ^3/uL (0-1.3); Monocytes % (auto) 13.7 % (0.0-12.0); Neutrophils % (auto) 68.3 % (37.0-80.0); Nucleated Red Blood Cells % 0.1 %; Red Blood Cells 4.71 10^6/uL (4.0-5.20); White Blood Cell 5.8 10^3/uL (4.4-10.8)
[2021-04-20] MEDS: CLINDAMYCIN 600MG IV 50 ML IV SCH ×3 (06:20→22:53)
[2021-04-20] MEDS: hydrALAZINE HCL 20 MG/ML VL IV PRN ×2 (06:21→13:05)
[2021-04-20 06:44] LABS: Albumin 2.4 g/dL (3.4-5.0); Calcium 9.1 mg/dL (8.5-10.1); Potassium 4.5 mmol/L (3.5-5.1)
[2021-04-20 06:48] LABS: BUN/Creatinine Ratio 28.4; Bilirubin, Total 1.8 mg/dL (0.2-1.0)
[2021-04-20] MEDS: LACTATED RINGER'S 1,000 ML IV SCH (07:55)
[2021-04-20] MEDS: methylPREDNISolone SOD SUCC 40 MG/ML VL IV SCH (08:32)
[2021-04-20] MEDS: cefTRIAXone 1GM/50ML D5W 50 ML IV SCH (08:32)
[2021-04-20] MEDS: LABETALOL HCL 200 MG TAB PO SCH ×2 (08:32→22:52)
[2021-04-20] MEDS: PANTOPRAZOLE 40 MG/10 ML VIAL INJ IV SCH (08:32)
[2021-04-20 09:00] VITALS: BP 125/63
[2021-04-20 12:47] VITALS: BP 162/78
[2021-04-20 17:16] VITALS: BP 155/87
[2021-04-20 20:00] VITALS: BP 162/78
[2021-04-20 22:00] VITALS: BP 147/77
[2021-04-21] MEDS: LACTATED RINGER'S 1,000 ML IV SCH (00:35)
[2021-04-21 05:00] VITALS: BP 107/59
[2021-04-21] MEDS: CLINDAMYCIN 600MG IV 50 ML IV SCH ×3 (06:39→22:54)
[2021-04-21 09:00] VITALS: BP 133/63
[2021-04-21] MEDS: PANTOPRAZOLE 40 MG/10 ML VIAL INJ IV SCH (09:23)
[2021-04-21] MEDS: cefTRIAXone 1GM/50ML D5W 50 ML IV SCH (09:23)
[2021-04-21] MEDS: LABETALOL HCL 200 MG TAB PO SCH ×2 (09:24→22:00)
[2021-04-21] MEDS ORDERED: methylPREDNISolone SOD SUCC 40 MG/ML VL IV SCH (10:00)
[2021-04-21 13:00] VITALS: BP 109/59
[2021-04-21] MEDS: PROMETHAZINE HCL 25 MG/ML 1ML IV PRN (14:39)
[2021-04-21] MEDS ORDERED: LIDOCAINE 2%HCL (LOCAL ANESTH.) INJ 20ML MDV ONE (14:53)
[2021-04-21 17:00] VITALS: BP 106/51
[2021-04-21 22:00] VITALS: BP 111/51
[2021-04-22 05:00] VITALS: BP 123/64
[2021-04-22] MEDS: CLINDAMYCIN 600MG IV 50 ML IV SCH ×2 (06:47→14:00)
[2021-04-22 08:52] VITALS: BP 112/41
[2021-04-22] MEDS: cefTRIAXone 1GM/50ML D5W 50 ML IV SCH (09:16)
[2021-04-22] MEDS: LABETALOL HCL 200 MG TAB PO SCH (09:18)
[2021-04-22] MEDS ORDERED: PANTOPRAZOLE 40 MG TAB PO SCH (10:00)
[2021-04-22 13:00] VITALS: BP 84/42
[2021-04-22 14:30] VITALS: BP 120/48
[2021-04-22 16:47] VITALS: BP 120/63
[2021-04-22 17:22] VITALS: BP 108/56
== END 2021-04-22 19:00 | disposition home health service (06) | DRG 388 ==
LOC: ER 23:11 → TELE 04-14 07:17 → TELE-WESTW 04-14 09:23 → WEST WING 04-21 12:49
PROVIDERS: ADMIT Nurse Practitioner Family; ATTEND Internal Medicine
PROC: 0W9F3ZZ Drainage of Abdominal Wall, Percutaneous Approach (ICD-10-PCS; principal; 2021-04-14)
PROC: 0D9670Z Drainage of Stomach with Drainage Device, Via Natural or Artificial Opening (ICD-10-PCS; 2021-04-16)
DX: K56.600 Partial intestinal obstruction, unspecified as to cause (principal); J96.01 Acute respiratory failure with hypoxia; L02.211 Cutaneous abscess of abdominal wall; R18.8 Other ascites; Z68.42 Body mass index [BMI] 45.0-49.9, adult; K74.60 Unspecified cirrhosis of liver; R79.89 Other specified abnormal findings of blood chemistry; E66.01 Morbid (severe) obesity due to excess calories; Z88.0 Allergy status to penicillin; Z88.8 Allergy status to other drugs, medicaments and biological substances; D69.59 Other secondary thrombocytopenia; E87.70 Fluid overload, unspecified; N18.9 Chronic kidney disease, unspecified; J44.9 Chronic obstructive pulmonary disease, unspecified; I12.9 Hypertensive chronic kidney disease with stage 1 through stage 4 chronic kidney disease, or unspecified chronic kidney disease; N83.9 Noninflammatory disorder of ovary, fallopian tube and broad ligament, unspecified; Z85.43 Personal history of malignant neoplasm of ovary; Z87.440 Personal history of urinary (tract) infections; Z90.49 Acquired absence of other specified parts of digestive tract; Z90.710 Acquired absence of both cervix and uterus; Z20.822 Contact with and (suspected) exposure to COVID-19; B95.61 Methicillin susceptible Staphylococcus aureus infection as the cause of diseases classified elsewhere
CPT/HCPCS: 36415; 71045; 74018; 74021; 74150; 74177; 74250; 75989; 80048; 80053; 80061; 81001; 82306; 83036; 83605; 83615; 83690; 83735; 83880; 84100; 84443; 84484; 85007; 85025; 85027; 85610; 85730; 86304; 86803; 87040; 87077; 87086; 87186; 87205; 87340; 87426; 93005; 94640; 96361; 96365; 96375; 97110; 97116; 97163; 97530; C1729; C9113; G0378; J0696; J2185; J2250; J2405; J3490

== ENCOUNTER 2022-12-14 10:39 | Inpatient (IN) | payer MEDICARE, BC ==
[~2022-12-14] VITALS: Ht 177.8 cm; Wt 152.0 kg
[2022-12-14] MEDS ORDERED: ASPirin 81 mg TAB PO ONE (11:00)
[2022-12-14 11:25] LABS: Basophils # (auto) 0 10 ^3/uL (0-0.2); Basophils % (auto) 0.7 % (0.0-2.0); Eosinophils # (auto) 0.3 10 ^3/uL (0-0.8); Hematocrit 40.3 % (36.0-46.0); Hemoglobin 13.4 g/dL (12.2-16.2); Lymphocytes # (auto) 1.5 10 ^3/uL (0.4-5.4); Lymphocytes % (auto) 40.1 % (10.0-50.0); Mean Corpuscular Hemoglobin 29.1 pg (28.0-32.0); Mean Corpuscular Hgb Conc. 33.2 g/dL (32.0-36.0); Mean Corpuscular Volume 87.5 fL (80.0-100.0); Monocytes # (auto) 0.6 10 ^3/uL (0-1.3); Neutrophils # (auto) 1.4 10 ^3/uL (1.6-8.6); Neutrophils % (auto) 36.2 % (37.0-80.0); Nucleated Red Blood Cells % 0.2 %; White Blood Cell 3.8 10^3/uL (4.4-10.8)
[2022-12-14 11:39] LABS: Potassium 3.8 mmol/L (3.5-5.1)
[2022-12-14 11:44] LABS: INR 1.12 (0.9-1.15)
[2022-12-14 11:46] LABS: Albumin 2.8 g/dL (3.4-5.0); BUN/Creatinine Ratio 12.8 (10.0-20.0); Bilirubin, Total 2.9 mg/dL (0.2-1.0); Calcium 9.5 mg/dL (8.5-10.1); Magnesium 2.3 mg/dL (1.6-2.6); Total Protein 7.3 g/dL (6.4-8.2)
[2022-12-14] MEDS ORDERED: NITROGLYCERIN 0.4 MG SL TAB SL PRN (16:45)
[2022-12-14] MEDS ORDERED: MORPHINE SULFATE INJ 2 MG/ml SYRG IV PRN (16:45)
[2022-12-14] MEDS ORDERED: FUROSEMIDE 20 MG/2 ML VIAL IV ONE (16:45)
[2022-12-14] MEDS ORDERED: ACETAMINOPHEN 325 MG TAB PO PRN (16:45)
[2022-12-14] MEDS ORDERED: ALBUTEROL SULF 2.5 MG/0.5ML(0.5%) NEB SOLN NEB PRN (17:00)
[2022-12-14 17:36] VITALS: BP 149/57
[2022-12-14 17:38] LABS: Cholesterol 152 mg/dL (< 200); HDL Cholesterol 53 mg/dL (40-59); LDL Cholesterol 97 mg/dL (< 100); Triglycerides 48 mg/dL (< 150)
[2022-12-15 04:59] VITALS: BP 121/63
[2022-12-15 06:54] LABS: Basophils # (auto) 0 10 ^3/uL (0-0.2); Basophils % (auto) 1.3 % (0.0-2.0); Eosinophils # (auto) 0.3 10 ^3/uL (0-0.8); Eosinophils % (auto) 8.9 % (0.0-7.0); Hematocrit 37.4 % (36.0-46.0); Hemoglobin 12.5 g/dL (12.2-16.2); Lymphocytes # (auto) 1.1 10 ^3/uL (0.4-5.4); Lymphocytes % (auto) 36.2 % (10.0-50.0); Mean Corpuscular Hemoglobin 29.3 pg (28.0-32.0); Mean Corpuscular Hgb Conc. 33.3 g/dL (32.0-36.0); Mean Corpuscular Volume 87.8 fL (80.0-100.0); Monocytes # (auto) 0.5 10 ^3/uL (0-1.3); Monocytes % (auto) 15.2 % (0.0-12.0); Neutrophils # (auto) 1.2 10 ^3/uL (1.6-8.6); Neutrophils % (auto) 38.4 % (37.0-80.0); Nucleated Red Blood Cells % 0.2 %; Red Blood Cells 4.26 10^6/uL (4.0-5.20); Red Cell Distribution Width 15.6 % (11.8-14.3); White Blood Cell 3.1 10^3/uL (4.4-10.8)
[2022-12-15 07:11] LABS: Albumin 2.5 g/dL (3.4-5.0); Calcium 9.1 mg/dL (8.5-10.1); Potassium 3.9 mmol/L (3.5-5.1)
[2022-12-15 07:15] LABS: BUN/Creatinine Ratio 14.9 (10.0-20.0); Bilirubin, Total 2.6 mg/dL (0.2-1.0); Total Protein 6.6 g/dL (6.4-8.2)
[2022-12-15] MEDS ORDERED: ADENOSINE 128 MG in GIVE UN-DILUTED 0 ML IV STA (08:01)
[2022-12-15 09:00] VITALS: BP 136/63
[2022-12-15] MEDS ORDERED: PANTOPRAZOLE 40 MG TAB PO SCH (10:00)
[2022-12-15] MEDS ORDERED: PATIENTS OWN MEDICATION (Olmesartan Medoxomil (Benicar) 1 TAB) PO SCH (10:00)
[2022-12-15] MEDS: ENOXAPARIN SOD 40 MG/0.4 ML SYRINGE SC SCH (11:54)
[2022-12-15] MEDS: FUROSEMIDE 20 MG/2 ML VIAL IV SCH (11:54)
[2022-12-15] MEDS: POTASSIUM CHL 20 Meq TABLET PO SCH (11:55)
[2022-12-15] MEDS: ASPirin 81 mg TAB PO SCH (11:55)
[2022-12-15 16:49] VITALS: BP 147/80
[2022-12-15] MEDS: SUCRALFATE 1 GM TAB PO SCH ×2 (18:28→21:08)
[2022-12-15 19:50] VITALS: BP 157/80
[2022-12-15 22:00] VITALS: BP 157/80
[2022-12-15] MEDS: SUCRALFATE 1 GM/10 ML ORAL SUSP PO SCH (22:22)
[2022-12-15] MEDS: PANTOPRAZOLE 40 MG TAB PO SCH (22:22)
[2022-12-16 05:00] VITALS: BP 129/66
[2022-12-16] MEDS: SUCRALFATE 1 GM/10 ML ORAL SUSP PO SCH ×3 (06:54→17:00)
[2022-12-16 08:25] VITALS: BP 111/55
[2022-12-16] MEDS: ENOXAPARIN SOD 40 MG/0.4 ML SYRINGE SC SCH (08:38)
[2022-12-16] MEDS: POTASSIUM CHL 20 Meq TABLET PO SCH (08:39)
[2022-12-16] MEDS: ASPirin 81 mg TAB PO SCH (08:39)
[2022-12-16] MEDS: PANTOPRAZOLE 40 MG TAB PO SCH (08:39)
[2022-12-16] MEDS ORDERED: [UNRECOGNIZED DRUG - OTHER] PO SCH (10:00)
[2022-12-16] MEDS ORDERED: HYDROCHLOROTHIAZIDE PO SCH (10:00)
[2022-12-16] MEDS: FUROSEMIDE 20 MG/2 ML VIAL IV SCH (11:29)
[2022-12-16 12:20] VITALS: BP 111/58
[2022-12-16 14:15] LABS: Hepatitis A Ab IgM Negative; Hepatitis B Core IgM Negative; Hepatitis C Antibody Negative (Negative)
[2022-12-16] MEDS ORDERED: PANT40TA2 PO (15:18)
[2022-12-16] MEDS ORDERED: OLME20TA53 PO (15:18)
[2022-12-16] MEDS ORDERED: SUCR1TAB22 OR (15:18)
[2022-12-16 16:20] VITALS: BP 108/61
== END 2022-12-16 17:55 | disposition home or self-care (01) | DRG 391 ==
LOC: ER 10:39 → TELE 16:40 → TELE-WESTW 21:29
PROVIDERS: ADMIT Nurse Practitioner Family; ATTEND Nurse Practitioner Acute Care
DX: K29.70 Gastritis, unspecified, without bleeding (principal); E43 Unspecified severe protein-calorie malnutrition; D61.818 Other pancytopenia; Z68.42 Body mass index [BMI] 45.0-49.9, adult; K21.00 Gastro-esophageal reflux disease with esophagitis, without bleeding; E66.01 Morbid (severe) obesity due to excess calories; Z20.822 Contact with and (suspected) exposure to COVID-19; K74.60 Unspecified cirrhosis of liver; Z90.710 Acquired absence of both cervix and uterus; I10 Essential (primary) hypertension; Z79.899 Other long term (current) drug therapy; Z83.3 Family history of diabetes mellitus; Z88.0 Allergy status to penicillin; Z90.49 Acquired absence of other specified parts of digestive tract; Z88.1 Allergy status to other antibiotic agents; Z88.5 Allergy status to narcotic agent; Z91.010 Allergy to peanuts; Z88.8 Allergy status to other drugs, medicaments and biological substances; Z91.018 Allergy to other foods
CPT/HCPCS: 36415; 71045; 76705; 78452; 80053; 80061; 80074; 82728; 83036; 83690; 83735; 83880; 84443; 84484; 85025; 85610; 85730; 86038; 87426; 93005; 93017; 93306; G0378; J0153